=== PATIENT | female | born 2000 | race American Indian/Alaskan Native ===

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

== ENCOUNTER 2019-07-09 13:13 | Emergency (ER) | payer SELFPAY ==
--- NOTE | 2019-07-09 13:21 | Emergency Department Report ---
Blank Doc - Documentation Documentation: 19-year-old female that presents with right rib pain s/p fall. Denies any other pain or injuries. This initial assessment/diagnostic orders/clinical plan/treatment(s) is/are subject to change based on patient's health status, clinical progression and re- assessment by fellow clinical providers in the ED. Further treatment and workup at subsequent clinical providers discretion. Patient/guardians urged not to elope from the ED as their condition may be serious if not clinically assessed and managed. Initial orders include: 1- Patient sent to [facility] for further evaluation and treatment 2- xrays
[2019-07-09 13:23] VITALS: BP 119/87
--- NOTE | 2019-07-09 14:04 | XRay Report ---
RIGHT RIB SERIES WITH PA CHEST INDICATION / CLINICAL INFORMATION: pain s/p fall. COMPARISON: None available. FINDINGS: No visible right rib fracture. Accompany chest radiograph shows clear well-expanded lungs. No visible pneumothorax. IMPRESSION: No visible right rib fracture. No acute pulmonary disease. Signer Name: Chetna Whitfield MD Signed: 07/09/2019 2:00 PM Workstation Name: [id number]
--- NOTE | 2019-07-09 14:51 | Emergency Department Report ---
ED Fall HPI - General Chief Complaint: Pain General Stated Complaint: RT SIDE INJURY Time Seen by Provider: 07/09/19 13:19 Source: patient Mode of arrival: Ambulatory - History of Present Illness Initial Comments: Patient is a 19-year-old female presents to emergency room with complaints of right rib pain that began 2 nights ago. pt states that she had a trip and fall 2 nights ago and fell into a ditch onto her right ribs. She states her pain is worse with movements. Denies any shortness of breath or chest pain or any other symptoms. Patient denies any dizziness or syncope prior to the fall. pt any past medical history or allergies to medications. pt states her last menstrual cycle was 06/23/19. - Related Data Previous Rx's Medication Instructions Recorded Last Taken Type Polyethylene Glycol 3350 [Miralax 17 gm PO QDAY #30 packet 01/29/18 Unknown Rx 3350] Cyclobenzaprine [Flexeril] 10 mg PO QHS PRN #10 tablet 07/09/19 Unknown Rx Naproxen [EC-Naproxen] 500 mg PO BID PRN #14 tablet. 07/09/19 Unknown Rx Allergies Allergy/AdvReac Type Severity Reaction Status Date / Time No Known Allergies Allergy Unverified 01/29/18 08:06 ED Review of Systems ROS: Stated complaint: RT SIDE INJURY Other details as noted in HPI Comment: All other systems reviewed and negative ED Past Medical Hx - Past Medical History Previous Medical History?: No - Surgical History Past Surgical History?: No - Social History Smoking Status: Never Smoker Substance Use Type: None - Medications Home Medications: Home Medications Medication Instructions Recorded Confirmed Last Taken Type Polyethylene Glycol 3350 [Miralax 17 gm PO QDAY #30 packet 01/29/18 Unknown Rx 3350] Cyclobenzaprine [Flexeril] 10 mg PO QHS PRN #10 tablet 07/09/19 Unknown Rx Naproxen [EC-Naproxen] 500 mg PO BID PRN #14 tablet. 07/09/19 Unknown Rx ED Physical Exam - General Limitations: No Limitations General appearance: alert, in no apparent distress - Head Head exam: Present: atraumatic, normocephalic - Eye Eye exam: Present: normal appearance - ENT ENT exam: Present: mucous membranes moist - Respiratory Respiratory exam: Present: normal lung sounds bilaterally, chest wall tenderness (mild right anterior rib TTP, no ecchymosis, no edema, no crepitus, no deformity). Absent: respiratory distress, wheezes, rales, rhonchi, stridor, accessory muscle use, decreased breath sounds, prolonged expiratory - Cardiovascular Cardiovascular Exam: Present: regular rate, normal rhythm, normal heart sounds. Absent: systolic murmur, diastolic murmur, rubs, gallop - Neurological Exam Neurological exam: Present: alert, oriented X3 - Psychiatric Psychiatric exam: Present: normal affect, normal mood - Skin Skin exam: Present: warm, dry, intact ED Course Vital Signs 07/09/19 13:20 Temperature 98.8 F Pulse Rate 97 H Respiratory 18 Rate Blood Pressure 119/87 O2 Sat by Pulse 98 Oximetry ED Medical Decision Making - Radiology Data Radiology results: report reviewed RIGHT RIB SERIES WITH PA CHEST INDICATION / CLINICAL INFORMATION: pain s/p fall. COMPARISON: None available. FINDINGS: No visible right rib fracture. Accompany chest radiograph shows clear well-expanded lungs. No visible pneumothorax. IMPRESSION: No visible right rib fracture. No acute pulmonary disease. Signer Name: Chetna Whitfield MD Signed: 07/09/2019 2:00 PM Workstation Name: [id number] Transcribed By: Dictated By: Chetna Whitfield MD Electronically Authenticated By: Chetna Whitfield MD Signed Date/Time: 07/09/19 1400 - Medical Decision Making Patient is a 19-year-old female presents to emergency room with complaints of right rib pain that began 2 nights ago. pt states that she had a trip and fall 2 nights ago and fell into a ditch onto her right ribs. She states her pain is worse with movements. Denies any shortness of breath or chest pain or any other symptoms. Patient denies any dizziness or syncope prior to the fall. pt any past medical history or allergies to medications. pt states her last menstrual cycle was 06/23/19. vitals are normal. on exam: mild right anterior rib TTP, no ecchymosis, no edema, no crepitus, no deformity. pt given anti-inflammatory and muscle relaxer. advised pt to please take medication as prescribed as needed. do Not drive or operate machinery while taking a muscle relaxer. may Use ice packs, heating pads, rest, epsom salt bath. follow up with a primary care doctor in the next 2-3 days. Return to the emergency room for any new or worsening symptoms. - Differential Diagnosis fx, dislocation, strain, sprain, contusion Critical care attestation.: If time is entered above; I have spent that time in minutes in the direct care of this critically ill patient, excluding procedure time. ED Disposition Clinical Impression: Contusion of rib on right side Qualifiers: Encounter type: initial encounter Qualified Code(s): S20.211A - Contusion of right front wall of thorax, initial encounter Disposition: DC- TO HOME OR SELFCARE Is pt being admited?: No Does the pt Need Aspirin: No Condition: Stable Instructions: Muscle Strain (ED) Additional Instructions: Please take medication as prescribed as needed. do Not drive or operate machinery while taking a muscle relaxer. may Use ice packs, heating pads, rest, epsom salt bath. follow up with a primary care doctor in the next 2-3 days. Return to the emergency room for any new or worsening symptoms. Prescriptions: Cyclobenzaprine [Flexeril] 10 mg PO QHS PRN #10 tablet PRN Reason: Muscle Spasm Naproxen [EC-Naproxen] 500 mg PO BID PRN #14 tablet. PRLuke Reason: pain Referrals: [facility] [Provider Group] - 2-3 Days [facility] [Outside] - 2-3 Days [facility] [Outside] - 2-3 Days Time of Disposition: 14:50 Print Language: BENGALI
== END 2019-07-09 14:57 | disposition home or self-care (01) ==
LOC: ED 13:13
DX: S20.211A Contusion of right front wall of thorax, initial encounter (principal); Z79.899 Other long term (current) drug therapy; W01.198A Fall on same level from slipping, tripping and stumbling with subsequent striking against other object, initial encounter; Y93.89 Activity, other specified; Y92.89 Other specified places as the place of occurrence of the external cause; Y99.8 Other external cause status
CPT/HCPCS: 99283

== ENCOUNTER 2021-05-03 09:17 | Emergency (ER) | payer SELFPAY ==
[2021-05-03] MEDS ORDERED: SODIUM CHLORIDE 0.9% 1000 ML 0 ML ONE (10:02)
--- NOTE | 2021-05-03 11:51 | XRay Report ---
CHEST 2 VIEWS INDICATION / CLINICAL INFORMATION: cough. COMPARISON: Chest radiograph 07/09/2019 FINDINGS: SUPPORT DEVICES: None. HEART / MEDIASTINUM: No significant abnormality. LUNGS / PLEURA: No significant pulmonary or pleural abnormality. No pneumothorax. No evidence of pneu monia. ADDITIONAL FINDINGS: No significant additional findings. IMPRESSION: 1. No acute findings. . No interval change. Signer Name: Chetna Whitfield MD Signed: 05/03/2021 11:46 AM Workstation Name: [id number]
[2021-05-03 12:52] VITALS: BP 105/75
[2021-05-03 13:00] LABS: Bacteria,Urine 1+ /HPF (Negative); Bilirubin,Urine NEG (Negative); Blood,Urine NEG (Negative); Color,Urine Yellow (Yellow); Mucus,Urine FEW /HPF; Protein,Urine <15 mg/dL mg/dL (Negative); Urobilinogen,Urine < 2.0 mg/dL (<2.0)
[2021-05-03 14:01] LABS: Basophils % (Auto) 0.9 % (0.0-1.8); Eosinophils % (Auto) 1.1 % (0.0-4.3); Hematocrit 36.3 % (30.3-42.9); Hemoglobin 12.2 gm/dl (10.1-14.3); Lymphocytes # (Auto) 0.5 K/mm3 (1.2-5.4); Lymphocytes % (Auto) 10.1 % (13.4-35.0); Mean Corpuscular HGB Conc 34 % (30-34); Mean Corpuscular Volume 84 fl (79-97); Monocytes # (Auto) 0.6 K/mm3 (0.0-0.8); Monocytes % (Auto) 12.2 % (0.0-7.3); Platelet Count 212 K/mm3 (140-440); Red Blood Count 4.35 M/mm3 (3.65-5.03)
--- NOTE | 2021-05-03 14:06 | Emergency Department Report ---
ED General Adult HPI - General Chief complaint: Upper Respiratory Infection Stated complaint: CHEST PAIN, COUGH, RUNNY NOSE, HEADACHE, DIZZY Time Seen by Provider: 05/03/21 11:29 Source: patient Mode of arrival: Ambulatory Limitations: No Limitations - History of Present Illness Initial comments: 21-year-old -[place] female patient presents with complaints of body aches and chills, cough, congestion, and runny nose x2 days and dizziness starti ng last night. She denies any loss of taste or smell, hemoptysis, shortness of breath, or chest pain. No recent known sick contacts per patient. Patient states she was seeking COVID-19 testing here today. She states the dizziness comes and goes and and that it feels like the room is spinning. The dizziness does worsen with head movement and getting up from a seated position. No prior history of vertigo per patient or hearing loss or tinnitus. She also denies any head trauma, headache, vision changes, nausea/vomiting, numbness/tingling/weakness in her limbs, difficulty with speech/ambulation, confusion, or memory loss. No past medical history per patient. - Related Data Previous Rx's Medication Instructions Recorded Last Taken Type polyethylene glycoL 3350 [Miralax 17 gm PO QDAY #30 packet 01/29/18 Unknown Rx 3350] Cyclobenzaprine [Flexeril] 10 mg PO QHS PRN #10 tablet 07/09/19 Unknown Rx Naproxen [EC-Naproxen] 500 mg PO BID PRN #14 tablet. 07/09/19 Unknown Rx Guaifenesin/Pseudoephedrne HCl 1 each PO BID PRN #10 tab.er.12h 05/03/21 Unknown Rx [Mucinex D ER 1,200-120 mg Tab] Meclizine [Antivert] 25 mg PO TID PRN #15 tablet 05/03/21 Unknown Rx Allergies Allergy/AdvReac Type Severity Reaction Status Date / Time No Known Allergies Allergy Unverified 01/29/18 08:06 ED Review of Systems ROS: Stated complaint: CHEST PAIN, COUGH, RUNNY NOSE, HEADACHE, DIZZY Other details as noted in HPI Constitutional: malaise. denies: chills, diaphoresis, fever, weakness ENT: congestion. denies: throat pain Respiratory: cough. denies: shortness of breath Cardiovascular: denies: chest pain, palpitations, edema, syncope Gastrointestinal: denies: abdominal pain, nausea, vomiting, diarrhea Genitourinary: denies: urgency, dysuria, frequency, hematuria Musculoskeletal: denies: back pain Skin: denies: rash, lesions, change in color Neurological: denies: headache, numbness, paresthesias, abnormal gait ED Past Medical Hx - Past Medical History Previous Medical History?: Yes Additional medical history: Age 16 had arrhythmia - Surgical History Past Surgical History?: No - Social History Smoking Status: Never Smoker Substance Use Type: None - Medications Home Medications: Home Medications Medication Instructions Recorded Confirmed Last Taken Type polyethylene glycoL 3350 [Miralax 17 gm PO QDAY #30 packet 01/29/18 Unknown Rx 3350] Cyclobenzaprine [Flexeril] 10 mg PO QHS PRN #10 tablet 07/09/19 Unknown Rx Naproxen [EC-Naproxen] 500 mg PO BID PRN #14 tablet.dr 07/09/19 Unknown Rx Guaifenesin/Pseudoephedrne HCl 1 each PO BID PRN #10 tab.er.12h 05/03/21 Unknown Rx [Mucinex D ER 1,200-120 mg Tab] Meclizine [Antivert] 25 mg PO TID PRN #15 tablet 05/03/21 Unknown Rx ED Physical Exam - General Limitations: No Limitations General appearance: alert, in no apparent distress - Head Head exam: Present: atraumatic, normocephalic - Eye Eye exam: Present: normal appearance, PERRL, EOMI. Absent: scleral icterus, conjunctival injection - ENT ENT exam: Present: mucous membranes moist - Neck Neck exam: Present: normal inspection, full ROM - Respiratory Respiratory exam: Present: normal lung sounds bilaterally. Absent: respiratory distress - Cardiovascular Cardiovascular Exam: Present: regular rate, normal rhythm - GI/Abdominal GI/Abdominal exam: Present: soft. Absent: distended, tenderness - Extremities Exam Extremities exam: Present: full ROM - Back Exam Back exam: Present: normal inspection - Neurological Exam Neurological exam: Present: alert, oriented X3, CN II-XII intact, normal gait. Absent: motor sensory deficit - Expanded Neurological Exam Expanded Cerebellar function: Finger to Nose: Normal, Heel to [place]ick: Normal, Romberg: Normal Sensory exam: Upper Extremity Light Touch: Normal, Lower Extremity Light Touch: Normal Motor strength exam: RUE: 5, LUE: 5, RLE: 5, LLE: 5 Best Eye Response (Jennifer): (4) open spontaneously Best Motor Response (Jennifer): (6) obeys commands Best Verbal Response (Jennifer): (5) oriented Jennifer Total: 15 - Psychiatric Psychiatric exam: Present: normal affect, normal mood - Skin Skin exam: Present: warm, dry, intact, normal color. Absent: rash ED Course Vital Signs 05/03/21 05/03/21 05/03/21 09:54 12:47 12:48 Temperature 98.8 F Pulse Rate 96 H Respiratory 18 Rate Blood Pressure 120/74 112/67 O2 Sat by Pulse 100 98 100 Oximetry 05/03/21 05/03/21 12:49 12:50 Temperature Pulse Rate Respiratory Rate Blood Pressure 107/68 105/75 O2 Sat by Pulse 100 100 Oximetry ED Medical Decision Making - Lab Data Result diagrams: 05/03/21 12:55 05/03/21 12:55 Lab Results 05/03/21 05/03/21 05/03/21 Range/Units 12:55 12:55 12:55 WBC 4.7 (4.5-11.0) K/mm3 RBC 4.35 (3.65-5.03) M/mm3 Hgb 12.2 (10.1-14.3) gm/dl Hct 36.3 (30.3-42.9) % MCV 84 (79-97) fl MCH 28 (28-32) pg MCHC 34 (30-34) % RDW 17.0 H (13.2-15.2) % Plt Count 212 (140-440) K/mm3 Lymph % (Auto) 10.1 L (13.4-35.0) % Graham % (Auto) 12.2 H (0.0-7.3) % Eos % (Auto) 1.1 (0.0-4.3) % Baso % (Auto) 0.9 (0.0-1.8) % Lymph # (Auto) 0.5 L (1.2-5.4) K/mm3 Graham # (Auto) 0.6 (0.0-0.8) K/mm3 Eos # (Auto) 0.0 (0.0-0.4) K/mm3 Baso # (Auto) 0.0 (0.0-0.1) K/mm3 Seg Neutrophils % 75.7 H (40.0-70.0) % Seg Neutrophils # 3.6 (1.8-7.7) K/mm3 Sodium 138 (137-145) mmol/L Potassium 3.9 (3.6-5.0) mmol/L Chloride 103.4 (98-107) mmol/L Carbon Dioxide 23 (22-30) mmol/L Anion Gap 16 mmol/L BUN 10 (7-17) mg/dL Creatinine 0.5 L (0.6-1.2) mg/dL Estimated GFR > 60 ml/min BUN/Creatinine Ratio 20 % Glucose 80 (65-100) mg/dL Calcium 9.6 (8.4-10.2) mg/dL Total Bilirubin 0.30 (0.1-1.2) mg/dL AST 28 (5-40) units/L ALT 22 (7-56) units/L Alkaline Phosphatase 67 (35-129) units/L Troponin T < 0.010 (0.00-0.029) ng/mL Total Protein 7.1 (6.3-8.2) g/dL Albumin 4.5 (3.9-5) g/dL Albumin/Globulin Ratio 1.7 % HCG, Qual Negative (Negative) Urine Color (Yellow) Urine Turbidity (Clear) Urine pH (5.0-7.0) Ur Specific [place] (1.003-1.030) Urine Protein (Negative) mg/dL Urine Glucose (UA) (Negative) mg/dL Urine Ketones (Negative) mg/dL Urine Blood (Negative) Urine Nitrite (Negative) Urine Bilirubin (Negative) Urine Urobilinogen (<2.0) mg/dL Ur Leukocyte Esterase (Negative) Urine WBC (Auto) (0.0-6.0) /HPF Urine RBC (Auto) (0.0-6.0) /HPF U Epithel Cells (Auto) (0-13.0) /HPF Urine Bacteria (Auto) (Negative) /HPF Urine Mucus /HPF 05/03/21 Range/Units Unknown WBC (4.5-11.0) K/mm3 RBC (3.65-5.03) M/mm3 Hgb (10.1-14.3) gm/dl Hct (30.3-42.9) % MCV (79-97) fl MCH (28-32) pg MCHC (30-34) % RDW (13.2-15.2) % Plt Count (140-440) K/mm3 Lymph % (Auto) (13.4-35.0) % Graham % (Auto) (0.0-7.3) % Eos % (Auto) (0.0-4.3) % Baso % (Auto) (0.0-1.8) % Lymph # (Auto) (1.2-5.4) K/mm3 Graham # (Auto) (0.0-0.8) K/mm3 Eos # (Auto) (0.0-0.4) K/mm3 Baso # (Auto) (0.0-0.1) K/mm3 Seg Neutrophils % (40.0-70.0) % Seg Neutrophils # (1.8-7.7) K/mm3 Sodium (137-145) mmol/L Potassium (3.6-5.0) mmol/L Chloride (98-107) mmol/L Carbon Dioxide (22-30) mmol/L Anion Gap mmol/L BUN (7-17) mg/dL Creatinine (0.6-1.2) mg/dL Estimated GFR ml/min BUN/Creatinine Ratio % Glucose (65-100) mg/dL Calcium (8.4-10.2) mg/dL Total Bilirubin (0.1-1.2) mg/dL AST (5-40) units/L ALT (7-56) units/L Alkaline Phosphatase (35-129) units/L Troponin T (0.00-0.029) ng/mL Total Protein (6.3-8.2) g/dL Albumin (3.9-5) g/dL Albumin/Globulin Ratio % HCG, Qual (Negative) Urine Color Yellow (Yellow) Urine Turbidity Clear (Clear) Urine pH 5.0 (5.0-7.0) Ur Specific [place] 1.015 (1.003-1.030) Urine Protein <15 mg/dl (Negative) mg/dL Urine Glucose (UA) Neg (Negative) mg/dL Urine Ketones Neg (Negative) mg/dL Urine Blood Neg (Negative) Urine Nitrite Neg (Negative) Urine Bilirubin Neg (Negative) Urine Urobilinogen < 2.0 (<2.0) mg/dL Ur Leukocyte Esterase Neg (Negative) Urine WBC (Auto) 3.0 (0.0-6.0) /HPF Urine RBC (Auto) 1.0 (0.0-6.0) /HPF U Epithel Cells (Auto) 3.0 (0-13.0) /HPF Urine Bacteria (Auto) 1+ (Negative) /HPF Urine Mucus Few /HPF - Radiology Data Radiology results: report reviewed CHEST 2 VIEWS INDICATION / CLINICAL INFORMATION: cough. COMPARISON: Chest radiograph 07/09/2019 FINDINGS: SUPPORT DEVICES: None. HEART / MEDIASTINUM: No significant abnormality. LUNGS / PLEURA: No significant pulmonary or pleural abnormality. No pneumothorax. No evidence of pneumonia. ADDITIONAL FINDINGS: No significant additional findings. IMPRESSION: 1. No acute findings. . No interval change. - Medical Decision Making 21-year-old -[place] female patient presents with complaints of body aches and chills, cough, congestion, and runny nose x2 days and dizziness starting last night. She denies any loss of taste or smell, hemoptysis, shortness of breath, or chest pain. No recent known sick contacts per patient. Patient states she was seeking COVID-19 testing here today. She states the dizziness comes and goes and and that it feels like the room is spinning. The dizziness does worsen with head movement and getting up from a seated position. No prior history of vertigo per patient or hearing loss or tinnitus. She also denies any head trauma, headache, vision changes, nausea/vomiting, numbness/tingling/weakness in her limbs, difficulty with speech/ambulation, confusion, or memory loss. No past medical history per patient. Neuro exam is normal. No significant abnormalities noted on CBC, CMP, or UA. Orthostatic vitals are normal. Suspect possible vertigo and viral URI. Cannot rule out COVID-19 and recommend outpatient testing-patient provided with list of testing facilities. Her vitals are normal, she is well-appearing, she is stable for discharge home. Discussed signs and symptoms that should prompt immediate return to the [facility] department in detail with patient verbalized understanding Critical care attestation.: If time is entered above; I have spent that time in minutes in the direct care of this critically ill patient, excluding procedure time. ED Disposition Clinical Impression: Viral URI with cough, Dizziness Disposition: DC-01 TO HOME OR SELFCARE Is pt being admited?: No Condition: Stable Instructions: Viral Respiratory Infection, [id number], Benign Positional Vertigo, Dizziness Prescriptions: Meclizine [Antivert] 25 mg PO TID PRN #15 tablet PRN Reason: Vertigo Guaifenesin/Pseudoephedrne HCl [Mucinex D ER 1,200-120 mg Tab] 1 each PO BID PRN #10 tab.er.12h PRN Reason: congestion Referrals: PRIMARY CARE, [Primary Care Provider] - 3-5 Days Forms: Work/School Release Form(ED)
[2021-05-03 14:21] LABS: Alanine Aminotransferase 22 units/L (7-56); Albumin 4.5 g/dL (3.9-5); BUN/Creatinine Ratio 20; Blood Urea Nitrogen 10 mg/dL (7-17); Calcium 9.6 mg/dL (8.4-10.2); Hemolysis Index 1
[2021-05-03] MEDS ORDERED: MECLIZINE 25 MG TAB PO ONE (14:38)
--- NOTE | 2021-05-05 10:38 | Electrocardiograph Report ---
[facility] Test Date: 2021-05-03 Test Time: 13:48:36 Pat Name: JOANNA KAHN Department: Room: Gender: F Retail Customer Service Specialist: MARQUITA : 2000 Requested By: RONALD GIORDANO Order Number: [id number] Reading MD: Edgar Vigil Measurements Intervals [place] Rate: 100 P: 48 MO: 140 QRS: 68 QRSD: 104 T: 46 QT: 340 QTc: 437 Interpretive Statements Sinus tachycardia No previous ECG available for comparison Electronically Signed On 05-05-2021 10:37:43 EDT by Edgar Vigil
== END 2021-05-03 15:06 | disposition home or self-care (01) ==
LOC: ED 09:17
DX: J06.9 Acute upper respiratory infection, unspecified (principal); R42 Dizziness and giddiness
CPT/HCPCS: 36415; 71046; 80053; 81001; 84443; 84484; 84703; 85025; 93005; 99284; J7030

== ENCOUNTER 2022-06-29 08:50 | Emergency (ER) | payer SELFPAY ==
--- NOTE | 2022-06-29 09:30 | Emergency Department Report ---
Abscess Boil HPI - HPI Chief Complaint: Dental/Oral Stated Complaint: ABCESS SWOLLEN LYMPH Time Seen by Provider: 06/29/22 09:29 Duration: >1 Week Location: Other Severity: Mild History: Yes Pain, Yes Previous History, No Fever, No Purulent Drainage, No Numbness, No Foreign Body, No Insect Bite HPI: 22 yo comes to ER with right lower molar dental pain. no abscess. abc intact. no trismus. taking po. Same problem in April - she went to urgent care. Never saw dentist. Comes to ER today with recurrence. Educated on importance of dental detention Medications: Previous Rx's Medication Instructions Recorded Last Taken Type polyethylene glycoL 3350 [Miralax 17 gm PO QDAY #30 packet 01/29/18 Unknown Rx 3350] Cyclobenzaprine [Flexeril] 10 mg PO QHS PRN #10 tablet 07/09/19 Unknown Rx Naproxen [EC-Naproxen] 500 mg PO BID PRN #14 tablet. 07/09/19 Unknown Rx Guaifenesin/Pseudoephedrne HCl 1 each PO BID PRN #10 tab.er.12h 05/03/21 Unknown Rx [Mucinex D ER 1,200-120 mg Tab] Meclizine [Antivert] 25 mg PO TID PRN #15 tablet 05/03/21 Unknown Rx Amoxicillin [Trimox CAP] 500 mg PO BID #20 capsule 06/29/22 Unknown Rx Allergies/Adverse Reactions: Allergies Allergy/AdvReac Type Severity Reaction Status Date / Time No Known Allergies Allergy Verified 06/29/22 09:29 ED Review of Systems ROS: Stated complaint: ABCESS SWOLLEN LYMPH Other details as noted in HPI Comment: All other systems reviewed and negative ED Past Medical Hx - Past Medical History Previous Medical History?: No Additional medical history: Age 16 had arrhythmia - Surgical History Past Surgical History?: No - Family History Family history: no significant - Social History Smoking Status: Never Smoker Substance Use Type: None - Medications Home Medications: Home Medications Medication Instructions Recorded Confirmed Last Taken Type polyethylene glycoL 3350 [Miralax 17 gm PO QDAY #30 packet 01/29/18 Unknown Rx 3350] Cyclobenzaprine [Flexeril] 10 mg PO QHS PRN #10 tablet 07/09/19 Unknown Rx Naproxen [EC-Naproxen] 500 mg PO BID PRN #14 tablet. 07/09/19 Unknown Rx Guaifenesin/Pseudoephedrne HCl 1 each PO BID PRN #10 tab.er.12h 05/03/21 Unknown Rx [Mucinex D ER 1,200-120 mg Tab] Meclizine [Antivert] 25 mg PO TID PRN #15 tablet 05/03/21 Unknown Rx Amoxicillin [Trimox CAP] 500 mg PO BID #20 capsule 06/29/22 Unknown Rx ED Abscess Boil Physical Exam - Exam General: Vital signs noted. No distress. Alert and acting appropriately. Exam: Yes Normal Neurologic Exam, Yes Normal Circulation, No Tenderness, No Fluctuance, No Surrounding Cellulites/Erythema, No Lymphangitis, No Crepitation, No Heart Murmur Critical care attestation.: If time is entered above; I have spent that time in minutes in the direct care of this critically ill patient, excluding procedure time. ED Medical Decision Making - Medical Decision Making simple dental pain no abscess no trismus taking po vs normal as documented by RN educated on dental care dc home with dc plan of care including diet, meds, activity and follow up - Differential Diagnosis dental pain ED Disposition Clinical Impression: Pain, dental Disposition: 01 HOME / SELF CARE / HOMELESS Is pt being admited?: No Does the pt Need Aspirin: No Instructions: Acute Pain, Adult Additional Instructions: over the counter motrin or tylenol for pain med as ordered today until gone FOLLOW UP WITH DENTIST [facility] REFERRAL BELOW Prescriptions: Amoxicillin [Trimox CAP] 500 mg PO BID #20 capsule Referrals: [facility] [Outside] - 3-5 Days [facility] [Outside] - 3-5 Days [facility] [Outside] - 3-5 Days Forms: Work/School Release Form(ED) Time of Disposition: :
== END 2022-06-29 10:04 | disposition home or self-care (01) ==
LOC: ED 08:50
DX: K08.89 Other specified disorders of teeth and supporting structures (principal); Z79.899 Other long term (current) drug therapy
CPT/HCPCS: 99282